=== PATIENT | female | born 1990 | race Caucasian/White ===

== ENCOUNTER 2019-09-05 19:39 | Emergency (ER) | payer SELFPAY ==
[2019-09-05 19:50] VITALS: BP 140/89; PULSE 73
[2019-09-05] MEDS ORDERED: Lidocaine/EPINEPHrine/Tetracaine Soln 1 ML TOP STA (20:08)
[2019-09-05] MEDS ORDERED: Bupivacaine 0.5% 10 ML SDV INJECT ONE (20:08)
[2019-09-05] MEDS ORDERED: Lidocaine 1% with EPINEPHrine 1:100,000 20 ML MDV INJECT ONE (20:08)
--- NOTE | 2019-09-05 20:13 | EDM.PDOC ---
ED HPI GENERAL MEDICAL PROBLEM - General Chief Complaint: Laceration Stated Complaint: LACERATON TO LEG Time Seen by Provider: 09/05/19 20:00 Source of Information: Reports: Patient History Limitations: Reports: No Limitations - History of Present Illness INITIAL COMMENTS - FREE TEXT/NARRATIVE: Mrs. Antoine is a very pleasant 29-year-old woman with no chronic medical problems , who now presents to the ED after accidentally sustaining a laceration to her distal anterior right leg on a bed frame around 19:00 tonight. She states that the wound does not hurt, and she did not even know she had it until her pointed it out. She is otherwise uninjured. Here in the ED, the patient is found to be hemodynamically stable, afebrile, saturating 97% on room air. Other than the leg laceration, the patient denies recent fever, chills, sore throat, ear pain, nasal or sinus congestion, cough, dyspnea, chest pain, palpitations, nausea, vomiting, constipation, diarrhea, abdominal pain, urinary symptoms, recent weight gain or weight loss, recent bloody bowel movements or black bowel movements, recent joint aches, headaches, or rashes. Our records indicate that the patient's last tetanus vaccination was in 2013. The patient does not have a PCP. Her Mysql Database Developer is Dr. Deja Klein. - Related Data Allergies Allergy/AdvReac Type Severity Reaction Status Date / Time Penicillins Allergy Hives Verified 09/05/19 19:49 Home Meds: Home Meds Mv-Mn/Iron/FA/Herbal/Digestive [ One Tablet] 1 each PO DAILY 10/28/13 [ History] Acetaminophen/oxyCODONE [Percocet 325-5 MG] 1 each PO Q6HR PRN #20 tab 10/30/13 [Rx] Ibuprofen [Motrin] 600 mg PO Q6H PRN #18 tablet 10/30/13 [Rx] Past Medical History : 2 Para: 2 - Past Surgical History Female Surgical History: Reports: Section (x 2) Social & Family History - Tobacco Use Smoking Status *Q: Never Smoker - Alcohol Use Alcohol Use History: Yes Alcohol Use Frequency: Socially - Recreational Drug Use Recreational Drug Use: No - Living Situation & Occupation Living situation: Reports: , with Spouse, with Family (2 kids) Occupation: Unemployed ED ROS GENERAL - Review of Systems Review Of Systems: Comprehensive ROS is negative, except as noted in HPI. ED EXAM, SKIN/RASH Exam: See Below Exam Limited By: No Limitations General Appearance: Alert, WD/WN, No Apparent Distress Extremities: Other (There is an approximately 7 cm linear laceration running along the axis of the leg over the distal anterior right leg, approximately 6.5 cm of which is full-thickness. No apparent tenderness injury; patient can dorsiflex her foot with no difficulty. Normal distal extremity sensation. The wound is not bleeding. Normal dorsalis pedis pulse, and the foot is warm to palpation.) ED SKIN PROCEDURES - Laceration/Wound Repair Right Leg Appearance: Subcutaneous, Linear, Clean Distal NVT: Neuro & Vascular Intact, No Tendon Injury Anesthetic Type: Local Local Anesthesia - Lidocaine (Xylocaine): 1% with EPI (50:50 admixture) Local Anesthesia - Bupivicaine (Marcaine): 0.5% Plain (50:50 admixture) Local Anesthetic Volume: 2cc Skin Prep: Providone-Iodine (Betadine) Exploration/Debridement/Repair: Wound Explored, In a Bloodless Field, Explored to Base, No Foreign Material Found Closed with: Sutures Lac/Wound length In cm: 7.0 Suture Size: 3-0 # of Sutures: 20 Suture Type: Nylon (Ethilon), Running, Simple Drain Placement: No Sterile Dressing Applied: Nurse Tetanus Status Addressed: Yes Complications: No Course - Vital Signs Last Recorded V/S: Last Vital Signs Temp 36.6 C 09/05/19 19:47 Pulse 73 09/05/19 19:47 Resp 16 09/05/19 19:47 BP 140/89 09/05/19 19:47 Pulse Ox 97 09/05/19 19:47 - Orders/Labs/Meds Meds: Medications Discontinued Medications Generic Name Dose Route Start Last Admin Trade Name Ruth PRN Reason Stop Dose Admin Bupivacaine HCl 10 ml 09/05/19 20:08 09/05/19 20:52 Sensorcaine-Mpf 0.5% INJECT 09/05/19 20:09 10 ml ONETIME ONE Administration Lidocaine/Epinephrine 20 ml 09/05/19 20:08 09/05/19 20:52 Xylocaine 1% With Epinephrine 1:100,000 INJECT 09/05/19 20:09 20 ml ONETIME ONE Administration Lidocaine/Tetracaine 5 ml 09/05/19 20:08 06/15/20 20:16 Let Andreina MANTILLA 09/05/19 20:09 5 ml ONETIME STA Administration - Re-Assessments/Exams Free Text/Narrative Re-Assessment/Exam: 09/05/19 20:09 As above, the patient sustained an approximately 7 cm laceration to her distal right leg on a bed frame tonight. The wound will require suturing. We will start with topical LET. 09/05/19 21:06 A sterile field made with Betadine and sterile drapes was established. Following the application of topical LET, the patient had fairly good blanching around the wound, but there was incomplete anesthesia, therefore the wound was infiltrated with a 50:50 admixture of bupivacaine 0.5% without epinephrine and lidocaine 1% with epinephrine, to good anesthetic effect. The wound edges were then approximated with 20 simple running sutures using 3-0 Ethilon. The patient tolerated the procedure well. Alanna LAWSON will apply a sterile dressing before the patient is discharged home. The sutures should be ready for removal by 09/13/2019. Departure - Departure Time of Disposition: 21:07 Disposition: Home, Self-Care 01 Condition: Good Clinical Impression: Laceration of right lower leg - Discharge Information *PRESCRIPTION DRUG MONITORING PROGRAM REVIEWED*: Not Applicable *COPY OF PRESCRIPTION DRUG MONITORING REPORT IN PATIENT CIARAN: Not Applicable Referrals: Deja Klein MD [Physician] - Forms: ED Department Discharge Additional Instructions: You were seen in the emergency room after sustaining a laceration to your distal right leg. The wound was closed with 20 running sutures. Keep the wound clean with ordinary soap and water when you bathe. Pat dry, then apply a sterile dressing, daily. We recommend that you do not apply antibiotic ointment. Take [id number] Tylenol or ibuprofen as needed for discomfort. The sutures should be ready for removal by 09/13/2019. They can be removed at the walk-in clinic, by a nurse at your doctor's office, or in the ER. Once the wound has completely healed, we recommend that you apply a sunblock every day, for 6 months, even through the winter, to help minimize the appearance of a scar. After that, if the appearance of the scar is still not to your liking, you may apply a silicone gel to help reorganize the scar. If you keep the wound clean, it should not get infected, however, if there are any concerns about infection, such as increased redness, swelling, inordinate pain, or drainage, please do not hesitate to return to the ER. Sepsis Event Note (ED) - Evaluation Sepsis Screening Result: No Definite Risk - Focused Exam Vital Signs: Vital Signs Temp Pulse Resp BP Pulse Ox 09/05/19 19:47 36.6 C 73 16 140/89 97
== END 2019-09-05 21:20 | disposition home or self-care (01) ==
LOC: JD.ED 19:39
DX: S81.811A Laceration without foreign body, right lower leg, initial encounter (principal); Z88.0 Allergy status to penicillin; Z79.899 Other long term (current) drug therapy; W26.9XXA Contact with unspecified sharp object(s), initial encounter
CPT/HCPCS: 12002; 99282; J3490